=== PATIENT | female | born 1990 | race African-American/Black ===

== ENCOUNTER 2018-10-10 11:23 | Emergency (ER) | payer MEDICAID ==
[~2018-10-10] VITALS: Ht 170.2 cm; Wt 86.4 kg
[2018-10-10] MEDS ORDERED: GABA-529 PO (11:35)
[2018-10-10] MEDS ORDERED: FLUO-191 PO (11:35)
[2018-10-10] MEDS ORDERED: ACETAMINOPHEN 500 MG TABLET PO ONE (12:15)
[2018-10-10 14:17] VITALS: BP 144/88
== END 2018-10-10 14:22 | disposition home or self-care (01) ==
LOC: EMS 11:24
DX: S82.831A Other fracture of upper and lower end of right fibula, initial encounter for closed fracture (principal); I50.9 Heart failure, unspecified; Z88.2 Allergy status to sulfonamides; W01.0XXA Fall on same level from slipping, tripping and stumbling without subsequent striking against object, initial encounter; Y93.01 Activity, walking, marching and hiking; Y92.89 Other specified places as the place of occurrence of the external cause; Y99.8 Other external cause status